=== PATIENT | female | born 1950 | race Caucasian/White ===

== ENCOUNTER 2024-12-04 11:42 | Emergency (ER) | payer MEDICARE, OTHER ==
[2024-12-04] MEDS ORDERED: Acetaminophen 500 MG TAB ONE (12:14)
[2024-12-04] MEDS ORDERED: Bacitracin 1 PK ONE (12:53)
[2024-12-04] MEDS ORDERED: Lidocaine 1% (PF) 30 ML VIAL ONE (12:53)
[2024-12-04] MEDS ORDERED: Boostrix 0.5 ML (Tdap) VIAL (>/=7 yrs of age) ONE (12:53)
== END 2024-12-04 13:58 | disposition home or self-care (01) ==
LOC: NAV ERS 11:42
DX: S02.2XXA Fracture of nasal bones, initial encounter for closed fracture (principal); S01.111A Laceration without foreign body of right eyelid and periocular area, initial encounter; E03.9 Hypothyroidism, unspecified; Z79.890 Hormone replacement therapy; E11.9 Type 2 diabetes mellitus without complications; I10 Essential (primary) hypertension; Z23 Encounter for immunization; Z79.4 Long term (current) use of insulin; Z79.899 Other long term (current) drug therapy; W01.10XA Fall on same level from slipping, tripping and stumbling with subsequent striking against unspecified object, initial encounter; Y93.01 Activity, walking, marching and hiking
CPT/HCPCS: 12011; 70450; 72125; 90471; 90715